=== PATIENT | female | born 2000 | race Hispanic/Latino ===

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

== ENCOUNTER → 2024-04-16 | Outpatient (CLI) | payer OTHER ==
[2024-04-16 14:52] LABS: BASOPHILS # (AUTO) 0.06 K/uL (0.00-0.20); BASOPHILS % (AUTO) 0.5 % (0.0-5.0); EOSINOPHILS # (AUTO) 0.16 K/uL (0.00-0.70); EOSINOPHILS % (AUTO) 1.4 % (0.0-8.0); HEMATOCRIT 40.1 % (36-48); IMMATURE GRANULOCYTE ABSOLUTE 0.04 K/uL (0-1); LYMPHOCYTES # (AUTO) 3.3 K/uL (1.0-4.8); LYMPHOCYTES % (AUTO) 29.5 % (21.0-51.0); MEAN CORPUSCULAR HEMOGLOBIN 28.4 pg (27.0-33.0); MEAN CORPUSCULAR HGB CONC 33.2 g/dL (32.0-36.0); MEAN CORPUSCULAR VOLUME 85.5 fL (79-99); MONOCYTES # (AUTO) 0.5 K/uL (0.1-1.0); MONOCYTES % (AUTO) 4.4 % (3.0-13.0); NEUTROPHILS # (AUTO) 7.2 K/uL (1.8-7.7); NEUTROPHILS % (AUTO) 63.8 % (40.0-77.0); PLATELET COUNT (AUTO) 387 K/uL (130-400); RED BLOOD CELL COUNT(AUTO) 4.69 MIL/uL (4.00-5.50); RED CELL DISTRIBUTION WIDTH 13.1 % (11.0-15.5); WHITE BLOOD COUNT (AUTO) 11.3 K/uL (4.8-10.8)
[2024-04-16 15:02] LABS: HEMOGLOBIN A1C 5.3 % (4.0-6.0)
[2024-04-16 15:16] LABS: ALBUMIN 3.5 g/dL (3.5-5.0)
[2024-04-16 15:18] LABS: BILIRUBIN,TOTAL 0.6 mg/dL (0.2-1.0); CREATININE 0.6 mg/dL (0.5-1.0); POTASSIUM 4.4 mmol/L (3.5-5.1); THYROID STIMULATING HORMONE 1.5 uIU/mL (0.36-3.74); TOTAL PROTEIN, SERUM 7.6 g/dL (6.0-8.3)
== END | disposition home or self-care (01) ==
LOC: LAB 14:23
PROVIDERS: ATTEND Internal Medicine
DX: Z13.220 Encounter for screening for lipoid disorders (principal); Z13.29 Encounter for screening for other suspected endocrine disorder; Z79.3 Long term (current) use of hormonal contraceptives; Z83.3 Family history of diabetes mellitus; D50.9 Iron deficiency anemia, unspecified; R73.9 Hyperglycemia, unspecified
CPT/HCPCS: 36415; 80053; 80061; 83036; 84443; 85025

== ENCOUNTER → 2024-04-30 | Outpatient (CLI) | payer OTHER, SELFPAY | END | disposition home or self-care (01) | LOC: RAH 14:43 | PROVIDERS: ATTEND Obstetrics & Gynecology | DX: N92.6 Irregular menstruation, unspecified (principal) | CPT/HCPCS: 76856; 82436; 87086 ==

== ENCOUNTER 2024-09-02 18:27 | Emergency (ER) | payer OTHER ==
[~2024-09-02] VITALS: Ht 149.9 cm; Wt 68.9 kg
[2024-09-02 18:36] VITALS: BP 116/74; PULSE 80; RESP 16; TEMP 98.3; O2SAT 98
[2024-09-02] MEDS: acetaMINOPHEN 500 MG TABLET PO ONE (18:49)
--- NOTE | 2024-09-02 19:00 | ERN ---
ED Note History of Present Illness Stated Complaint: RIGHT LEG PAIN Chief Complaint: Lower Extremity Pain/Injury Time Seen by MD: 18:32 Time Seen by Midlevel: 18:32 Dictation: The patient is a 23-year-old female with no past medical history who presents to the emergency department with complaints of right knee pain, right lower leg and right ankle pain after a fall she had on a- 08/27/2024 after slipping while getting down the steps of a bus due to which steps. Patient reports she landed on her right leg. Patient denies any other injuries. Denies any head trauma LOC, back abdominal pain, other extremity pain. Past Medical History Past Medical History: No Pertinent History Surgical History: None LMP: Aug 19, 2024 : 0 RN Note Reviewed/Agreed w/PFSH: Yes Review of System Dictation Constitutional: Negative for fever,chills, and weight loss Eyes: Negative for injury, pain,redness, and discharge ENT: Negative for injury,pain or swelling Cardiovascular: Negative for chest pain, palpitations, and edema Respiratory: Negative for shortness of breath, cough, and wheezing, Abdomen/GI: Negative for abdominal pain, nausea, vomiting, diarrhea, and constipation Back: Negative for injury and pain : Negative for injury, bleeding and discharge MS/Extremity: Positive for right lower leg pain Skin: Negative for rash, and discoloration Neuro: Negative for headache, weakness, numbness, tingling, and seizure Psych: Negative for suicide ideation, homicidal ideation, and hallucinations Initial Vital Sign VS Vital Signs Date Time Temp Pulse Resp B/P (MAP) Pulse Ox O2 Delivery O2 Flow Rate FiO2 09/02/24 18:27 98.4 81 20 115/76 97 0 09/02/24 18:36 Room Air* 21 Physical Exam Dictation Vital Signs reviewed General Appearance: Alert, oriented x 3, no acute distress, well developed, nourished. Head and Face: non-traumatic. Eyes: PERRL, pink conjunctivas, eyelid no trauma, anterior chamber with arcus senilis. Ears: Pinnas intact and no signs of trauma or erythema ear canals clear and no discharge TM no erythema Nose: No discharge, no bleeding. Oropharynx: Mouth normal, tongue pink. pharynx clear,no erythema, tonsils no exudates, no abscesses noted, mucous membrane moist Neck: Supple, non-tender, no thyromegaly, no masses, no JVD, no bruits Breast:Deferred Chest:No tenderness, no crepitus, no paradoxical movement, no retractions Lungs:Clear, well-ventilated, symmetric, no rales, no wheezing, no rhonchi, no stridor, good breath sounds bilaterally Heart: Regular rate, regular rhythm, no murmur, no gallops Vascular: no peripheral edema, dorsalis pedis bilaterally 3+, cap refill to lower extremities to seconds Abdomen: Soft, positive bowel sounds, nondistended, no guarding, nontender, no rebound, no masses no hepatomegaly, no splenomegaly, no Steward's sign, no hernias. Rectal: Deferred Genital: Deferred Neurological: Normal speech, motor function intact, sensory function intact Musculoskeletal: Neck nontender, full range of motion, back nontender, full range of motion, Extremities: nontender, full range of motion , bruising noted mid aguirre, no deformities, tender to palpation, CMS intact Skin: Color pink, dry, no turgor, no rash, no lacerations, no contusions. Scabs noted to right knee no active bleeding, no drainage Lymphatic: Deferred Results (Laboratory/Radiology) Laboratory/Radiology Laboratory Tests Test 09/02/24 18:49 Urine HCG, Qualitative NEGATIVE (NEGATIVE) REASON: fall,pain ORDERING PHYSICIAN: [facility] PROCEDURE: TIBFIB RT - TIBIA/FIBULA 2VWS RT Exam Type: TIBIA/FIBULA 2VWS RT Clinical Information: fall,pain Comparison: None Findings: The bone examination is unremarkable. No fractures or dislocations are seen. No radiopaque foreign bodies are noted. Soft tissues are preserved. IMPRESSION: Normal examination. REASON: fall,pain ORDERING PHYSICIAN: [facility] PROCEDURE: KNEE 3V RT - KNEE 3VWS RT Exam Type: KNEE 3VWS RT Clinical Information: fall,pain Comparison: None Findings: The bone examination is unremarkable. No fractures or dislocations are seen. No radiopaque foreign bodies are noted. Soft tissues are preserved. IMPRESSION: Normal examination. REASON: fall,pain ORDERING PHYSICIAN: [facility] PROCEDURE: [id number] - ANKLE COMP 3VWS RT Exam Type: ANKLE COMP 3VWS RT Clinical Information: fall,pain Comparison: None Findings: The bone examination is unremarkable. No fractures or dislocations are seen. No radiopaque foreign bodies are noted. Soft tissues are preserved. IMPRESSION: Normal examination. Labs Reviewed?: Yes ED Course ED Course Orders Procedure Category Date Status Time Knee 3vws Rt RAD 09/02/24 Resulted 18:42 Ankle Comp 3vws Rt RAD 09/02/24 Resulted 18:42 Tibia/Fibula 2vws Rt RAD 09/02/24 Resulted 18:42 ,Urine Test LAB 09/02/24 Complete 18:42 Acetaminophen 500mg PHA 09/02/24 Complete Tab (Tylenol 500mg T 19:00 Current Medications Medications (Trade) Dose Ordered Sig/Jeff Route PRN Reason Start Time Stop Time Status Last Admin Dose Admin Acetaminophen (TYLenol 500MG TAB) 1,000 mg ONCE ONCE PO 09/02/24 19:00 09/02/24 19:01 DC Vital Signs Date Time Temp Pulse Resp B/P (MAP) Pulse Ox O2 Delivery O2 Flow Rate FiO2 09/02/24 18:36 98.2 80 16 116/74 98 Room Air* 0 21 09/02/24 18:27 98.4 81 20 115/76 97 0 Medical Decision Making MDM The patient is a 23-year-old female with no past medical history who presents to the emergency department with complaints of right knee pain, right lower leg and right ankle pain after a fall she had on a- 08/27/2024 after slipping while getting down the steps of a bus due to which steps. Patient reports she landed on her right leg. Patient denies any other injuries. Denies any head trauma LOC, back abdominal pain, other extremity pain. Xray showed no acute fractures. Patient will be discharge to follow up with PCP. Patient in no acute distress. Neovascular intact. Differential diagnosis: Right knee sprain, tib-fib fracture, ankle fracture, leg contusion Need for hospitalization: Patient does not meet criteria for hospitalization. There are no social concerns with this patient. DX & DISP Disposition: Discharge Departure Impression: Primary Impression: Right leg injury Additional Impressions: Knee contusion, Contusion of leg, right Condition: Stable Additional Instructions: FOLLOW-UP WITH PRIMARY CARE PROVIDER IN 1 TO 2 DAYS. TAKE MEDICATIONS DIRECTED HERE IN THE EMERGENCY ROOM. OKAY TO CONTINUE HOME MEDICATIONS UNLESS O THERWISE DISCUSSED DURING YOUR VISIT IN THE EMERGENCY ROOM TODAY. RETURN TO YOUR NEAREST EMERGENCY ROOM IF SYMPTOMS WORSEN OR IF THERE IS NO IMPROVEMENT. CALL 911 IF YOU NEED IMMEDIATE ASSISTANCE. TAKE TYLENOL OR MOTRIN [id number] NEEDED AND IF NO CONTRAINDICATIONS ARE PRESENT. INCREASE ORAL HYDRATION. A WOUND CULTURE OR URINE CULTURE WAS ORDERED HERE IN THE EMERGENCY ROOM DEPARTMENT PLEASE FOLLOW-UP WITH PRIMARY CARE PROVIDER AND ADVISE THEM TO GET REPEAT PORTS FROM OUR FACILITY. IF YOU HAD ANY JAYSON WRAP/SPLINTS THAT WERE APPLIED HERE, PLEASE DO NOT REMOVE THEM UNTIL YOU SEE YOUR PRIMARY CARE OR SPECIALTY. Referrals: JIMI KING MD (PCP) LESA OLMEDO MD Time of Disposition: 20:34 I have reviewed the case, and I agree with, Diagnosis and Plan ESME [facility]IERREZ [facility] Sep 02, 2024 19:00
--- NOTE | 2024-09-02 19:16 | HMCIMG ---
Exam Type: KNEE 3VWS RT Clinical Information: fall,pain Comparison: None Findings: The bone examination is unremarkable. No fractures or dislocations are seen. No radiopaque foreign bodies are noted. Soft tissues are preserved. IMPRESSION: Normal examination.
--- NOTE | 2024-09-02 19:28 | HMCIMG ---
Exam Type: ANKLE COMP 3VWS RT Clinical Information: fall,pain Comparison: None Findings: The bone examination is unremarkable. No fractures or dislocations are seen. No radiopaque foreign bodies are noted. Soft tissues are preserved. IMPRESSION: Normal examination.
--- NOTE | 2024-09-02 19:29 | HMCIMG ---
Exam Type: TIBIA/FIBULA 2VWS RT Clinical Information: fall,pain Comparison: None Findings: The bone examination is unremarkable. No fractures or dislocations are seen. No radiopaque foreign bodies are noted. Soft tissues are preserved. IMPRESSION: Normal examination.
== END 2024-09-02 20:47 | disposition home or self-care (01) ==
LOC: EDH 18:27
DX: S80.01XA Contusion of right knee, initial encounter (principal); S80.11XA Contusion of right lower leg, initial encounter; W01.0XXA Fall on same level from slipping, tripping and stumbling without subsequent striking against object, initial encounter; Y93.89 Activity, other specified; Y92.89 Other specified places as the place of occurrence of the external cause; Y99.8 Other external cause status
CPT/HCPCS: 73562; 73590; 73610; 81025; 99284

== ENCOUNTER → 2025-06-18 | Outpatient (CLI) | payer OTHER ==
[2025-06-18 13:50] LABS: IMMATURE GRANULOCYTE ABSOLUTE 0.02 K/uL (0-1); NUCLEATED RED BLOOD CELLS 0.0 % (0.0-0.19); PLATELET COUNT (AUTO) 369 K/uL (130-400); RED BLOOD CELL COUNT(AUTO) 4.52 MIL/uL (4.00-5.50); RED CELL DISTRIBUTION WIDTH 13.2 % (11.0-15.5); WHITE BLOOD COUNT (AUTO) 8.9 K/uL (4.8-10.8)
[2025-06-18 13:54] LABS: ERYTHROCYTE SEDIMENTATION RATE 10 MM/HR (0-20)
[2025-06-18 14:13] LABS: ASPARTATE AMINOTRANSFERASE 14.0 U/L (10-37); CREATININE 0.5 mg/dL (0.5-1.0); GLOMERULAR FILTR. RATE CALC 135.0 mL/min (>90); GLUCOSE,RANDOM 90.0 mg/dL (70-105); LDL DIRECT 147.0 mg/dL (0-99); SODIUM SERUM 135.0 mmol/L (136-145); TOTAL PROTEIN, SERUM 7.3 g/dL (6.0-8.3); UREA NITROGEN, BLOOD 8.0 mg/dL (7-18)
== END | disposition home or self-care (01) ==
LOC: LAB 13:18
PROVIDERS: ATTEND Internal Medicine
DX: E78.2 Mixed hyperlipidemia (principal); D50.9 Iron deficiency anemia, unspecified; Z13.29 Encounter for screening for other suspected endocrine disorder; Z83.3 Family history of diabetes mellitus; M25.50 Pain in unspecified joint
CPT/HCPCS: 36415; 80053; 80061; 83036; 84443; 85025; 85651; 86038; 86140; 86215; 86235; 86431